=== PATIENT | female | born 2000 | race Hispanic/Latino ===

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

== ENCOUNTER 2018-07-27 13:09 | Emergency (ER) | payer SELFPAY ==
[~2018-07-27] VITALS: Ht 165.1 cm; Wt 75.0 kg
[~2018-07-27 13:09] MED LIST changes: +FERR SULFATE325 MG PO
[2018-07-27] MEDS ORDERED: NAPROSYN500 MG PO (14:34)
[2018-07-27] MEDS ORDERED: FLEXERIL PO (14:34)
[2018-07-27 14:38] VITALS: BP 121/77
== END 2018-07-27 14:38 | disposition home or self-care (01) | DRG 552 ==
LOC: ED 13:09
DX: S33.5XXA Sprain of ligaments of lumbar spine, initial encounter (principal); X50.0XXA Overexertion from strenuous movement or load, initial encounter; Y93.89 Activity, other specified; Y92.89 Other specified places as the place of occurrence of the external cause

== ENCOUNTER 2018-08-25 20:11 | Emergency (ER) | payer MEDICAID ==
[~2018-08-25] VITALS: Ht 165.1 cm; Wt 91.0 kg
[~2018-08-25 20:11] MED LIST changes: +FLEXERIL PO; +NAPROSYN500 MG PO
[2018-08-25] MEDS ORDERED: KEFLEX500 M1 PO (20:36)
[2018-08-25 20:55] VITALS: BP 124/86
== END 2018-08-25 20:55 | disposition home or self-care (01) ==
LOC: ED 20:11
DX: L02.02 Furuncle of face (principal)

== ENCOUNTER 2019-02-25 11:44 | Emergency (ER) | payer OTHER ==
[~2019-02-25] VITALS: Ht 165.1 cm; Wt 85.0 kg
[~2019-02-25 11:44] MED LIST changes: +KEFLEX500 M1 PO
[2019-02-25 12:54] LABS: URINE BILIRUBIN - DIPSTICK NEGATIVE (NEGATIVE); URINE BLOOD DIPSTICK TRACE-INTACT (NEGATIVE); URINE COLOR YELLOW; URINE GLUCOSE - DIPSTICK NEGATIVE (NEGATIVE); URINE KETONE TRACE mg/dL (NEGATIVE); URINE LEUK ESTERASE SMALL (Negative); URINE PROTEIN - DIPSTICK TRACE mg/dL (NEG-TRACE); URINE UROBILINOGEN - DIPSTICK 0.2 E.U./dL (0.2)
[2019-02-25 12:55] LABS: URINE CLARITY HAZY
[2019-02-25 13:04] LABS: URINE BACTERIA RARE hpf; URINE EPITHELIAL CELLS RARE EPI/hpf (0-FEW); URINE NITRITE - DIPSTICK NEGATIVE (Negative); URINE RBC 0-2 RBC/hpf (0-5)
[2019-02-25] MEDS ORDERED: AMOXICILLIN875 MG PO (13:17)
[2019-02-25] MEDS ORDERED: ZOFRAN4 MG/TAB PO (13:17)
[2019-02-25 13:23] VITALS: BP 93/58
== END 2019-02-25 13:27 | disposition home or self-care (01) ==
LOC: ED 11:44
DX: J02.0 Streptococcal pharyngitis (principal); N39.0 Urinary tract infection, site not specified

== ENCOUNTER 2019-05-19 20:06 | Emergency (ER) | payer OTHER ==
[~2019-05-19] VITALS: Ht 165.1 cm; Wt 93.0 kg
[~2019-05-19 20:06] MED LIST changes: +AMOXICILLIN875 MG PO; +ZOFRAN4 MG/TAB PO
[2019-05-19] MEDS ORDERED: KEFLEX500 M1 PO (21:03)
[2019-05-19] MEDS ORDERED: BACTROBAN TOP (21:03)
[2019-05-19] MEDS ORDERED: CLEOCIN300 MG PO (21:22)
[2019-05-19 21:52] VITALS: BP 120/71
== END 2019-05-19 21:52 | disposition home or self-care (01) ==
LOC: ED 20:06
DX: L02.415 Cutaneous abscess of right lower limb (principal)

== ENCOUNTER 2019-07-01 | Emergency (ER) | payer OTHER ==
[~2019-07-01] MED LIST changes: +BACTROBAN TOP; +CLEOCIN300 MG PO
[2019-07-01 20:27] LABS: URINE BILIRUBIN - DIPSTICK NEGATIVE (NEGATIVE); URINE BLOOD DIPSTICK MODERATE (NEGATIVE); URINE COLOR YELLOW; URINE GLUCOSE - DIPSTICK NEGATIVE (NEGATIVE); URINE KETONE NEGATIVE (NEGATIVE); URINE LEUK ESTERASE NEGATIVE (Negative); URINE NITRITE - DIPSTICK NEGATIVE (Negative); URINE PROTEIN - DIPSTICK NEGATIVE (NEG-TRACE); URINE SPECIFIC GRAVITY 1.015; URINE UROBILINOGEN - DIPSTICK 0.2 E.U./dL (0.2)
[2019-07-01 20:30] LABS: URINE CLARITY SL CLOUDY
[2019-07-01 20:31] LABS: URINE EPITHELIAL CELLS FEW EPI/hpf (0-FEW)
== END 2019-07-01 22:41 | disposition home or self-care (01) ==
DX: L04.0 Acute lymphadenitis of face, head and neck (principal)

== ENCOUNTER 2024-09-24 08:40 | Emergency (ER) | payer OTHER ==
[~2024-09-24] VITALS: Ht 165.1 cm; Wt 99.0 kg
[2024-09-24] VITALS (12 sets, daily range): BP systolic 101–124; BP diastolic 75–84
[2024-09-24] MEDS ORDERED: ONDANSETRON HCl 4 MG/2 ML SDV IV ONE (08:50)
[2024-09-24] MEDS ORDERED: MORPHINE SULFATE 4 MG/ML VIAL IV ONE (08:50)
[2024-09-24] MEDS ORDERED: Diph, Acellular Pertussis, Tet 0.5 ML/VIAL (Tdap) SDV IM ONE (09:10)
[2024-09-24 09:13] LABS: BASO% 0.4 % (0-3); EOS% 0.6 % (0-8); HEMATOCRIT 32.8 % (37.0-47.0); IMMATURE GRANULOCYTES 0.1 % (0.0-5.0); MEAN CELL VOLUME 73.5 fL CALC (80.0-100.0); MEAN CORPUSCULAR HGB 22.4 pG CALC (26.0-32.0); MEAN CORPUSCULAR HGB CONC 30.5 g/dL CAL (32.0-36.0); MONO% 6.6 % (2-13); NEUT# 6.07 thou/uL (2.00-7.15); NEUT% 72.3 % (42-76); RED BLOOD COUNT 4.46 mill/uL (4.20-5.60); RED CELL DISTRI WIDTH 16.9 % (11.5-15.5)
[2024-09-24 09:25] LABS: URINE BILIRUBIN - DIPSTICK Negative (NEGATIVE); URINE BLOOD DIPSTICK Negative (NEGATIVE); URINE GLUCOSE - DIPSTICK Negative (NEGATIVE); URINE KETONE Negative (NEGATIVE); URINE LEUK ESTERASE Trace (NEGATIVE); URINE PH 6.5 (4.5-8.0); URINE PROTEIN - DIPSTICK 30 mg/dL (NEG-TRACE); URINE SPECIFIC GRAVITY 1.025; URINE UROBILINOGEN - DIPSTICK 0.2 E.U./dL (0.2)
[2024-09-24 09:27] LABS: URINE COLOR Yellow; URINE NITRITE - DIPSTICK Positive (Negative)
[2024-09-24 09:33] LABS: URINE RBC 0-2 RBC/hpf (0-5); URINE SQUAMOUS EPITHELIAL CELL FEW EPI/hpf (0-FEW)
[2024-09-24 09:34] LABS: URINE BACTERIA MANY hpf
[2024-09-24 09:40] LABS: BILIRUBIN, TOTAL 0.4 mg/dL (0.02-1.3); BUN 11 mg/dL (7-17); BUN/CREATININE RATIO 21 (12-20 (CALC)); CHLORIDE 104 mmol/l (95-108); CREATININE 0.5 mg/dL (0.5-1.0); ESTIMATED GFR 133 ML/MIN (>=90 (CALC)); LIPASE 84 u/l (23-300); POTASSIUM 3.8 mmol/l (3.5-5.1); SODIUM 137 mmol/l (137-146); TOTAL PROTEIN 7.1 g/dL (6.3-8.2)
[2024-09-24 09:41] LABS: ALKALINE PHOSPHATASE 67 u/l (38-126); ANION GAP 11 (6-22 (CALC)); CARBON DIOXIDE 26 mmol/l (22-30); SGOT/AST 39 u/l (14-36)
== END 2024-09-24 12:00 | disposition home or self-care (01) | DRG 605 ==
LOC: ED 08:40
PROVIDERS: Family Medicine
DX: S00.81XA Abrasion of other part of head, initial encounter (principal); S80.211A Abrasion, right knee, initial encounter; S60.211A Contusion of right wrist, initial encounter; S60.221A Contusion of right hand, initial encounter; R10.33 Periumbilical pain; Y04.8XXA Assault by other bodily force, initial encounter; E66.9 Obesity, unspecified
CPT/HCPCS: 90715; J2405; Q9967